=== PATIENT | male | born 1940 | race Caucasian/White ===

== ENCOUNTER 2020-06-03 10:13 | Outpatient (CLI) | payer MEDICARE ==
--- NOTE | 2020-06-03 11:24 | ULT ---
Renal sonogram HISTORY: Renal failure. FINDINGS: Right kidney is 11.4 cm length with moderate to severe dilatation of the renal collecting s ystem. Exophytic cyst projecting from the lateral cortex is 4.0 cm greatest diameter. No solid masses. Left kidney is 12.5 cm with severe dilatation of the collecting system and mild thinning of the juliette x. Distal ureter is shown to be dilated. Urinary bladder is distended with estimated prevoid volume of 1089 cc. Post void volume measured at 9 91 cc. IMPRESSION : Urinary retention with bilateral hydronephrosis.
== END 2020-06-03 10:14 | disposition home or self-care (01) ==
LOC: BICULT 10:13
PROVIDERS: ATTEND Family Medicine
DX: N19 Unspecified kidney failure (principal); R33.9 Retention of urine, unspecified; N13.30 Unspecified hydronephrosis
CPT/HCPCS: 76770

== ENCOUNTER 2020-06-28 23:03 | Emergency (ER) | payer MEDICARE ==
[2020-06-29 03:04] LABS: #Lymphocytes 0.9 thou/uL (1.20-3.40); #Monocytes 0.6 thou/uL (0.11-0.59); #Neutrophils 9.8 thou/uL (1.40-6.50); %Basophils 0.3 % (0.0-1.0); %Eosinophils 0.1 % (0.0-10.0); %Lymphocytes 7.9 % (21.0-51.0); %Monocytes 4.9 % (0.0-10.0); %Neutrophils 86.8 % (42.0-75.0); Hemoglobin 9.7 g/dL (14.0-18.0); Mean Corpuscular HGB CONC 34.5 g/dL (32.0-36.0); Mean Corpuscular Hemoglobin 34.1 pg (27.0-31.0); Mean Corpuscular Volume 98.8 fL (78.0-98.0); Platelet Count 175 thou/uL (130-400); RBC Distribution Width 11.4 % (11.5-14.5); Red Blood Cell (RBC) Count 2.85 mill/uL (4.70-6.10); White Blood Cell (WBC) Count 11.3 thou/uL (4.8-10.8)
--- NOTE | 2020-06-29 04:25 | CON ---
DATE OF CONSULTATION: 06/29/2020 SUBJECTIVE: This is an 80-year-old white male, I am seeing here in the emergency room at [facility]. He saw Dr. Alvarado in his office earlier today, actually it would have been yesterday now. He had a cystoscopy and a placement of a suprapubic tube. He went home. His catheter has not been draining well. He has not been able to urinate. The urine has been bloody that has come out of the suprapubic tube, but it is hardly draining at all, so I asked him to come in. His vital signs are stable. He has not had history of prostate surgery, prostate cancer, radiation therapy. His suprapubic tube appears to be in good position. The nurses placed a Coude tip 22-Croatian, and he drained out about 600 cc of very bloody urine. They irrigated a little bit, but it was still bloody, so I came in to see if I could help irrigate him out better. I used about 3 L of sterile water in normal saline and irrigated him out to pretty much clear, had a lot of clot there, but I have gotten both tubes draining well and looking good. I have asked them to go ahead and get a hemoglobin on him, let him drink a pitcher of water. I think in the next 45 minutes or so, if the urine is not getting bloody that he could probably go home with the SP tube in and also with a Fernandez in, and he will go ahead and contact Dr. Alvarado on Wednesday or Wednesday this week to see when the urine is clear enough just to get the urethral Fernandez out again. This patient has already tried in- and out catheterization, but he has not been able to do it successfully, so we will go with a suprapubic tube at this point. If his hemoglobin is good and his urine stays free from getting really grossly hematuric, then he should be able to go home from the ER in the next hour or so. Job ID: [id number]
== END 2020-06-29 04:47 | disposition home or self-care (01) ==
LOC: ERS 23:03
DX: N99.512 Cystostomy malfunction (principal); R31.9 Hematuria, unspecified
CPT/HCPCS: 36415; 51702; 85025